=== PATIENT | female | born 1995 | race Caucasian/White ===

== ENCOUNTER 2017-05-07 00:02 | Emergency (ER) | payer SELFPAY ==
[~2017-05-07] VITALS: Ht 167.6 cm; Wt 64.0 kg
[2017-05-07] MEDS ORDERED: SODIUM CHLORIDE 0.9% 1,000 ML IV ONE (00:36)
[2017-05-07] MEDS ORDERED: MORPHINE SULFATE 4 MG/ML CPJ (NOT FOR IM USE) IV ONE (00:45)
[2017-05-07] MEDS ORDERED: ONDANSETRON HCL 4MG/2ML VIAL IV ONE (00:45)
[2017-05-07 01:04] LABS: BASOPHILS % 0.5 % (0.0-2.0); EOSINOPHILS % 0.3 % (0.0-5.0); HEMATOCRIT. 37.9 % (36.0-48.0); HEMOGLOBIN. 13.1 g/dL (12.0-16.0); LYMPHOCYTES % 11.2 % (20.0-50.0); MEAN CORPUSCULAR HEMOGLOBIN 29.1 pg (28.0-32.0); MEAN CORPUSCULAR VOLUME 84.4 fL (81.0-99.0); MEAN PLATELET VOLUME 8.5 fl (7.4-10.4); MONOCYTES % 3.9 % (2.0-8.0); NEUTROPHILS % 84.1 % (40.0-76.0); PLATELET 183 x1000/uL (130-400); RED BLOOD CELL COUNT 4.49 mill/uL (4.2-5.4); RED CELL DISTRIBUTION WIDTH 13.6 % (11.6-14.6)
[2017-05-07 01:08] LABS: CHLORIDE 105 mEq/L (98-107)
[2017-05-07 01:17] LABS: CARBON DIOXIDE 26 mEq/L (21-32)
[2017-05-07 03:20] VITALS: BP 106/70
[2017-05-07] MEDS ORDERED: IOHEXOL-300 100 ML BOTTLE ONE (04:19)
== END 2017-05-07 03:24 | disposition home or self-care (01) ==
LOC: ER 00:06
DX: S30.1XXA Contusion of abdominal wall, initial encounter (principal); V89.2XXA Person injured in unspecified motor-vehicle accident, traffic, initial encounter; Y93.89 Activity, other specified; Y92.89 Other specified places as the place of occurrence of the external cause; Y99.8 Other external cause status
CPT/HCPCS: 36415; 74177; 80048; 81025; 83690; 85025; 96361; 96374; 96375; 99285; J2270; J2405; J7030; Q9967; Z7610

== ENCOUNTER 2022-11-20 16:07 | Emergency (ER) | payer MEDICAID ==
[~2022-11-20] VITALS: Ht 162.6 cm; Wt 59.0 kg
[2022-11-20] MEDS ORDERED: LORAZEPAM 2MG/ML CPJ IM ONE (16:15)
[2022-11-20 17:32] LABS: BASOPHILS % 0.5 % (0.0-2.0); EOSINOPHILS % 0.1 % (0.0-5.0); HEMATOCRIT. 38.1 % (36.0-48.0); HEMOGLOBIN. 12.8 g/dL (12.0-16.0); LYMPHOCYTES % 8.6 % (20.0-50.0); MEAN CORPUSCULAR HEMOGLOBIN 28.4 pg (28.0-32.0); MEAN CORPUSCULAR VOLUME 84.6 fL (81.0-99.0); MEAN PLATELET VOLUME 8.2 fl (7.4-10.4); MONOCYTES % 4.8 % (2.0-8.0); PLATELET 229 x1000/uL (130-400); RED CELL DISTRIBUTION WIDTH 14.9 % (11.6-14.6)
[2022-11-20 17:34] LABS: CHLORIDE 106 mEq/L (98-107)
[2022-11-20 17:42] LABS: ETHANOL BLOOD < 10 mg/dL
[2022-11-20 17:52] LABS: HCG SCREEN NEGATIVE
[2022-11-20] MEDS ORDERED: POTASSIUM CHLORIDE 20MEQ TABLET SR PO ONE (20:00)
[2022-11-20 20:55] VITALS: BP 125/79
== END 2022-11-20 21:00 | disposition home or self-care (01) ==
LOC: ER 16:07
DX: F23 Brief psychotic disorder (principal); Z20.822 Contact with and (suspected) exposure to COVID-19
CPT/HCPCS: 36415; 80053; 80307; 80320; 80329; 84703; 85025; 87426; 96372; 99285; C9803; J2060; G0480